=== PATIENT | female | born 2000 | race Caucasian/White ===

== ENCOUNTER 2019-10-17 12:11 | Emergency (ER) | payer OTHER ==
[~2019-10-17] VITALS: Ht 142.2 cm; Wt 62.6 kg
[2019-10-17 12:16] VITALS: Ht 142.2 cm; Wt 62.6 kg
[2019-10-17 12:58] LABS: PLATELET COUNT 295 x10^3mcL (130-400)
[2019-10-17 12:59] LABS: RED CELL DISTRIBUTION WIDTH 21.9 % (11.5-14.5)
[2019-10-17 13:13] LABS: CHLORIDE SERUM 101 mmol/L (98-107); POTASSIUM SERUM 3.5 mmol/L (3.5-5.1); SODIUM SERUM 136 mmol/L (136-145)
[2019-10-17 13:14] LABS: ALBUMIN 3.7 g/dL (3.4-5.0); CARBON DIOXIDE 26 mmol/L (21-32); CREATININE SERUM 0.6 mg/dL (0.6-1.0); GFR1 > 60 mL/min; GLUCOSE SERUM 92 mg/dL (74-106); TOTAL PROTEIN, SERUM 8.3 g/dL (6.4-8.2)
[2019-10-17 13:15] LABS: ALKALINE PHOSPHATASE 53 U/L (46-116); ALT/SGPT 20 U/L (14-59); AST/SGOT 14 U/L (15-37); BILIRUBIN TOTAL 0.4 mg/dL (0.20-1.00); CALCIUM 9.4 mg/dL (8.5-10.1)
[2019-10-17 13:30] LABS: UA SPECIFIC GRAVITY 1.025 (1.005-1.035); microscopic required? YES
[2019-10-17 13:31] LABS: urine erythrocyte NEGATIVE (NEGATIVE)
[2019-10-17 13:53] LABS: BAND NEUTROPHIL 0 % (0-10); BASOPHIL 0 % (0-2); MONOCYTE 7 % (0-7); SEGMENTED NEUTROPHILS 76 % (37-75)
[2019-10-17 13:54] LABS: rbc morphology (normal/abnorm) ABNORMAL (NORMAL)
[2019-10-17 13:55] LABS: PLATELET MORPHOLOGY PLATELETS DECREASED
[2019-10-17 15:34] VITALS: BP 99/57
== END 2019-10-17 15:34 | disposition home or self-care (01) ==
LOC: ED 12:11
PROVIDERS: Emergency Medicine
DX: O23.01 Infections of kidney in pregnancy, first trimester (principal); Z3A.08 8 weeks gestation of pregnancy
CPT/HCPCS: J0696; J2765; J3490; J7030; J7060